=== PATIENT | female | born 1975 | race Caucasian/White ===

== ENCOUNTER → 2024-05-02 09:08 | Outpatient (REF) | payer OTHER, SELFPAY ==
[2024-05-02 09:36] LABS: % Basophils 0.9 % (0-2); % Eosinophils 2.3 % (0-6); % Immature Granulocytes 0.4 % (0-0.5); % Lymphocytes 38.9 % (20.5-51.1); % Monocytes 6.2 % (1.7-9.3); % Neutrophils 51.3 % (42.2-75.2); Absolute Basophils 0.1 10^3/uL (0-0.2); Absolute Eosinophils 0.1 10^3/uL (0-0.7); Absolute Lymphocytes 2.2 10^3/uL (1.2-3.4); Absolute Monocytes 0.4 10^3/uL (0.1-0.6); Absolute Neutrophils 2.9 10^3/uL (1.4-6.5); Hematocrit 41.9 % (37.0-47.0); Hemoglobin 13.8 g/dL (12.0-16.0); Mean Corp Hgb Conc. 32.9 g/dL (33.0-37.0); Mean Corpuscular Hgb 28.9 pg (27.0-31.0); Mean Corpuscular Volume 87.7 fL (81.0-99.0); Mean Platelet Volume 9.2 fL (7.4-10.4); Nucleated Red Blood Cells % 0 %; Platelet Count 297 10^3/uL (130-400); Red Blood Cell Count 4.78 10^6/uL (4.20-5.40); Red Cell Dist. Width 13.3 % (11.5-14.5); White Blood Cell Count 5.6 10^3/uL (4.8-10.8)
[2024-05-02 10:06] LABS: ALT (SGPT) 29 U/L (0-35); AST (SGOT) 25 U/L (14-36); Albumin 4.3 g/dl (3.5-5.0); Alkaline Phosphatase 74 U/L (38-126); Blood Urea Nitrogen 15 mg/dl (7-17); Calcium 9.4 mg/dl (8.4-10.2); Carbon Dioxide 28 mmol/L (22-30); Chloride 107 mmol/L (98-107); Glucose 91 mg/dl (70-99); HDL Cholesterol 69 mg/dl; LDL Cholesterol, Calculated 99 mg/dl; Potassium 4.6 mmol/L (3.5-5.1); Sodium 144 mmol/L (135-145); Total Bilirubin 0.4 mg/dl (0.2-1.3); Total Cholesterol 183 mg/dl (50-199); Total Protein 6.7 g/dl (6.3-8.2); Triglyceride 77 mg/dl (10-149); Very Low Density Lipoprotein 15 mg/dl (0-30); eGFR > 60.00
== END ==
LOC: REG 09:08
PROVIDERS: ATTENDING PHYSICIAN Family Medicine
DX: Z00.00 Encounter for general adult medical examination without abnormal findings (principal)
CPT/HCPCS: 36415; 80053; 80061; 85025

== ENCOUNTER → 2024-05-12 06:19 | Day surgery (SDC) | payer OTHER, SELFPAY | LOC: GI 06:19 | PROVIDERS: ATTENDING PHYSICIAN Surgery | DX: Z12.11 Encounter for screening for malignant neoplasm of colon (principal); D12.2 Benign neoplasm of ascending colon; D12.3 Benign neoplasm of transverse colon; D12.5 Benign neoplasm of sigmoid colon; K63.5 Polyp of colon; K62.1 Rectal polyp; Z86.0101 Personal history of adenomatous and serrated colon polyps | CPT/HCPCS: 45385; 45380; 88305 ==

== ENCOUNTER 2024-10-30 16:52 | Inpatient (IN) | payer OTHER, SELFPAY ==
[2024-10-30] VITALS (12 sets, daily range): BP systolic 86–115; BP diastolic 58–82; BMI 30.5
[2024-10-30 12:20] LABS: % Basophils 0.8 % (0-2); % Eosinophils 1.4 % (0-6); % Immature Granulocytes 0.2 % (0-0.5); % Lymphocytes 35.3 % (20.5-51.1); % Monocytes 7.4 % (1.7-9.3); % Neutrophils 54.9 % (42.2-75.2); Absolute Basophils 0.1 10^3/uL (0-0.2); Absolute Eosinophils 0.1 10^3/uL (0-0.7); Absolute Lymphocytes 2.2 10^3/uL (1.2-3.4); Absolute Monocytes 0.5 10^3/uL (0.1-0.6); Absolute Neutrophils 3.5 10^3/uL (1.4-6.5); Hematocrit 41.7 % (37.0-47.0); Hemoglobin 14.1 g/dL (12.0-16.0); Mean Corp Hgb Conc. 33.8 g/dL (33.0-37.0); Mean Corpuscular Hgb 29.3 pg (27.0-31.0); Mean Corpuscular Volume 86.7 fL (81.0-99.0); Mean Platelet Volume 9.3 fL (7.4-10.4); Nucleated Red Blood Cells % 0 %; Platelet Count 308 10^3/uL (130-400); Red Blood Cell Count 4.81 10^6/uL (4.20-5.40); Red Cell Dist. Width 13.2 % (11.5-14.5); White Blood Cell Count 6.3 10^3/uL (4.8-10.8)
[2024-10-30 12:33] LABS: ALT (SGPT) 27 U/L (0-35); AST (SGOT) 22 U/L (14-36); Albumin 4.4 g/dl (3.5-5.0); Alkaline Phosphatase 85 U/L (38-126); Blood Urea Nitrogen 14 mg/dl (7-17); Calcium 9.5 mg/dl (8.4-10.2); Carbon Dioxide 23 mmol/L (22-30); Chloride 112 mmol/L (98-107); Glucose 101 mg/dl (70-99); Lipase 77 U/L (23-300); Potassium 4.3 mmol/L (3.5-5.1); Sodium 141 mmol/L (135-145); Total Bilirubin 0.7 mg/dl (0.2-1.3); eGFR > 60.00
[2024-10-30 12:51] LABS: Urine Albumin 3+ (Neg - Trace); Urine Bilirubin Negative (Negative); Urine Character Clear (Clear); Urine Color Yellow; Urine Glucose Negative (Negative); Urine Ketone 1+ (Negative); Urine Leukocyte 2+ (Negative); Urine Nitrite Negative (Negative); Urine Occult Blood 4+ (Negative); Urine Urobilinogen 1+ (Neg - 1+)
[2024-10-30 13:51] LABS: Urine Mucus Many
[2024-10-30 13:52] LABS: Urine Squamous Cell 16-20 /LPF (Few)
[2024-10-30 13:53] LABS: Urine Red Blood Cell >100 /HPF (0-2); Urine White Cell >100 /HPF (0-5)
[2024-10-30 13:54] LABS: Urine Bacteria Moderate (Negative)
--- NOTE | 2024-10-30 15:05 | ED.GENMED ---
History of Present Illness
General
Chief Complaint: Abdominal Pain
Source: patient
Exam Limitations: none
Time Seen by Provider: 10/30/24 14:55
History of Present Illness
History of Present Illness:
49yoF with a history of kidney stones presenting for evaluation of flank pain. Pain began suddenly around 9:30 AM this morning. She reports a burning and sharp pain in her left flank and left lower quadrant. The pain was severe for about 2 hours
which prompted her to come to the ED. Symptoms resolved about 20 minutes after arrival. She continues to have a mild soreness in the area. She had 2 episodes of diarrhea earlier today. She noted some sediment in her urine as well. She denies
any dysuria, hematuria, fevers, vomiting. Patient is mostly worried because she has a colon resection scheduled for next week for recurrent polyps.
Past History
Past History
ED Past Medical History: Asthma and Other (Kidney stones); Negative HTN, Hypercholesterolemia or NIDDM
ED Past Surgical History: None
Social History
Tobacco: Former smoker
Alcohol: None
Drug: None
Personal:
Living: with family
Employment: Employed
Family History
Family History: Other (Noncontributory)
Phy Exam
General Physical Exam
General Presentation: well appearing and no apparent distress
General Skin: warm and dry
General Habitus: normal
General Mental: alert
ENT Exam
ENT Exam: normocephalic
Cardiovascular Exam
Cardiovascular Exam: regular rate/rhythm
Pulmonary Exam
Pulmonary Exam: lungs clear, no respiratory distress, no rales, no crackles, no rhonchi and no wheezing
Gastrointestinal Exam
Gastrointestinal Exam: non tender, soft, non distended and no cva tenderness
Neurological Exam
Neurological Exam: alert
Joanna Coma Scale
Eye Opening: Spontaneous
Verbal Response: Oriented
Motor Response: Obeys Commands
GCS Total Score: 15
Skin Exam
Skin Exam: normal color and warm/dry
Psychiatric Exam
Psychiatric Exam: normal mood/affect
Course
Orders/Labs/Results
Orders:
Orders
10/30/24 12:04
Complete Blood Count/With Diff Urgent
Comprehensive Metabolic Panel Urgent
Lipase Urgent
10/30/24 12:06
Urinalysis Reflex To Culture Urgent
Date Specimen was Collected: 10/30/24
Time Specimen was Collected: 11:56
Urine Microscopic Reflex Cult Urgent
Urine Culture Urgent
[facility] Source: U
Specimen Description:
Date Specimen was Collected: 10/30/24
Time Specimen was Collected: 11:56
10/30/24 15:05
CT Abd/pel Without Iv Or Oral Urgent
Comment:
Reason For Exam: L flank pain, LLQ pain
10/30/24 15:57
0.9% Sodium Chloride 1000 ml [Nss] 1,000 ml IV BOLUS
CefTRIAXone [Rocephin] 2,000 mg IV NOW STA
10/30/24 16:03
UROLOGY CONSULT Urgent
Consulting Provider: Abrahan Pedroza
Was physician already notified: Yes
10/30/24 16:21
Admit/Transfer Patient As Directed
Co-Sign Provider:
Level of Care: Inpatient admission
Assign to:: Medical/Surgical
Physician / Group: [place]
Diagnosis: renal calculus
Reason for Hospitalization: renal calculus
Expected length of stay greater than two midnights?: Yes
ELOS- Estimated Length of Stay in days: 3
I certify the patient meets the requirements for IP care: Yes
10/30/24 16:22
PRN Pain Medication Management As Directed
May give lesser potent ordered pain med per pt: Yes
preference::
Protocol:: Medication orders for pain may be administered in a
manner that supports deferring to patient preference
when the pt is:
- Requesting an ordered lesser potent pain medication.
Least to most potent pain medications are defined
as: acetaminophen < NSAID < tramadol < opioids
(morphine, oxycodone, hydromorphone).
- Requesting a lesser dose of the same medication IF
ORDERED.
- Requesting a less intrusive route of administration
if both routes are prescribed by the provider (PO <
IV).
10/30/24 16:23
Code Status As Directed
Resuscitation Status: Full Code
10/30/24 16:25
Diphenhydramine [Benadryl] 25 mg IV NOW STA
10/30/24 16:34
Norovirus by PCR Routine
[facility] Source: Feces/Stool
Specimen Description:
Stool Culture Routine
[facility] Source: Feces/Stool
Specimen Description:
Lactated Ringers [Lr] 1,000 ml IV BOLUS
Abnormal Lab Results
10/30/24 10/30/24
12:04 12:06
Chloride 112 H mmol/L
(98-107)
Glucose 101 H mg/dl
(70-99)
Urine Ketones 1+ A
(Negative)
Ur Occult Blood Reflex 4+ A
(Negative)
Leukocyte Esterase Rfl 2+ A
(Negative)
Urine RBC >100 A /HPF
(0-2)
Urine WBC (Reflex) >100 A /HPF
(0-5)
Urine Bacteria (Reflex) Moderate A
(Negative)
Urine Albumin (Reflex) 3+ A
(Neg - Trace)
10/30/24 12:04
10/30/24 12:04
Vital Signs
Initial and Last Documented VS:
Initial Vital Signs
Temp Pulse Resp BP Pulse Ox
97.8 F 88 16 115/81 98
10/30/24 11:53 10/30/24 11:53 10/30/24 11:53 10/30/24 11:53 10/30/24 11:53
Last Documented Vital Signs
Temp Pulse Resp BP Pulse Ox
97.8 F 81 16 105/71 97
10/30/24 11:53 10/30/24 17:53 10/30/24 17:53 10/30/24 17:53 10/30/24 17:53
MDM/Problems Addressed
Differential Diagnosis Includes:
49yoF here with L flank pain that began this morning. Now improved. Hx of kidney stones. VSS. She is well appearing in no distress. She is well appearing in no distress. No abdominal or CVA tenderness on exam. Differential diagnosis includes but is
not limited to: kidney stone, UTI, pyelonephritis, less likely diverticulitis
Initial ED plan: Workup initiated in triage. UA with >100 RBC, >100 WBCs, and moderate bacteria. White count and renal function normal. Will check CT abdomen without contrast.
*Critical Care Note
Total Time (30-74mins, 75-104mins- exclusive of procedures): Not Applicable
Update Note
Update Note:
CT shows a 9.7mm partially obstructing calculus in the L renal pelvis with mild hydronephrosis. She is afebrile and not meeting sepsis criteria. Case discussed with urology. Patient will go to the OR this evening for stent placement. IV Rocephin
ordered and patient admitted to the hospitalist service for further management.
ED Attending Note
-
Portions of this chart may have been created with voice recognition software.� Occasional wrong word or��sound alike� substitutions may have occurred due to the inherent limitations of voice recognition software.
Discharge Plan
Departure
Patient Disposition: Admit
Date of Disposition: 10/30/24
Time of Disposition: 16:04
Presentation/result/management discussed w/ accepting MD/DO: Hospitalist
Discharge Problem:
Calculus of left kidney, Urinary tract infection
Interventions
Interventions:
*Risk Screen - Suicide Last Done: 10/30/24 11:53
*General Assessment Last Done: 10/30/24 17:58
*Neglect/Abuse Screening Last Done: 10/30/24 11:53
*ED- Fall Risk Assessment Last Done: 10/30/24 17:58
*ED COVID-19 Vaccine History Last Done: 10/30/24 15:25
*Nursing Disposition Last Done: 10/30/24 18:00
BX-Ubqeiw-Dsqqdxnlnk Assessment Last Done: 10/30/24 15:25
Discharge Date and Time
Discharge Date/Time: 10/30/24 18:01
--- NOTE | 2024-10-30 16:06 | HPS.HSE ---
Addendum entered and electronically signed by Surendra Echevarria MD 10/30/24 17:17:
I saw and examined the patient.
The DOG LICENSE OFFICER SUPERVISOR or PA's note was reviewed and I agree with the note.
Comment:
49-year-old female with history of kidney stones presents for flank pain.��Pain began 930 this morning reportedly as sharp and burning pain in the left flank and left lower quadrant.��Symptoms resolved within 20 minutes of arrival to the
hospital.��Associated symptoms include 2 episodes of diarrhea.��Denies dysuria, hematuria, fever, chills, vomiting.��Blood pressure 110/69, pulse 88.��Respiratory rate 16.��Afebrile.��UA positive.��Imaging with mild left�hydronephrosis�secondary to
partially obstructing calculus in the left renal pelvis.��Multiple�nonobstructing�right�intrarenal�calculi.��Mild circumferential wall thickening to the descending colon suggestive of mild colitis or�underdistention�of the colon.��Of note patient
has scheduled colon resection scheduled for next week for recurrent polyps.
�
Plan�continue IV antibiotics.��Follow-up urine cultures.��Follow-up stool cultures for colitis if having diarrhea.��Continue antibiotic course.��IV fluids. Pain control
Original Note:
Family Physician
-
Family Physician: Willem Tolentino
Chief Complaint
-
left sided flank pain and abdominal pain
History of Present Illness
49yoF with a history of kidney stones presenting for evaluation of flank pain. Pain began suddenly around 9:30 AM this morning. She reports a burning and sharp pain in her left flank and left lower quadrant. Patient denied any dysuria, hematuria
or urinary frequency. Patient denies any fever, chills, chest pain, short of breath. Patient denies any nausea, vomiting. had one episode of diarrhea.
CT with 9.7 partially obstructing calculus in the left renal pelvis. Admitting for further management
Medical History
Past Medical History
Past Medical History: Reports Other
Additional Past Medical History:
Kidney stones
Past Surgical History: Reports Other
Additional Past Surgical History:
Hysterectomy
Social History
Tobacco: Former Smoker
Alcohol: None
Drug: None
Family History
Family History: Not pertinent
Allergies / Home Medications
Allergies reflects when Allergies were last updated in [facility].
Home Medications with original date entered in [facility]
Allergy/Medication List:
Allergies
Allergy/AdvReac Type Severity Reaction Status Date / Time
tamsulosin (From Flomax) Allergy Hives Verified 10/30/24 11:52
Review of Systems
-
Constitutional: Reports No Symptoms
EENT: Reports No Symptoms
Respiratory: Reports No Symptoms
Cardiac: Reports No Symptoms
Abdomen/GI: Reports No Symptoms
: Reports Flank Pain
Musculoskeletal: Reports No Symptoms
Skin: Reports No Symptoms
Neurological: Reports No Symptoms
Endocrine: Reports No Symptoms
Hematologic/Lymphatic: Reports No Symptoms
Psych: Reports No Symptoms
Physical Exam
Vital Signs
Vital Signs
Temp Pulse Resp BP Pulse Ox
97.8 F 88 16 104/69 98
10/30/24 11:53 10/30/24 11:53 10/30/24 11:53 10/30/24 15:55 10/30/24 11:53
Physical Exam
General: Well Developed, Well Nourished and No Apparent Distress
HEENT: NormoCephalic, Moist mucous membranes and Atraumatic
Respiratory: Clear
Cardiac: S1/S2 and Regular Rhythm; No Murmur or Rub
GI: Soft, Non Tender, Non Distended and Normal Bowel Sounds; No Organomegaly
Rectal: Deferred by Provider
Musculoskeletal: No Clubbing, No Cyanosis and No Edema
Skin: No Rash
Neuro: AO x 3 and Nonfocal/grossly intact
Psych: Calm
Laboratory Results
-
10/30/24 12:04
10/30/24 12:04
Laboratory Results
Total Bilirubin 0.7 mg/dl (0.2-1.3) 10/30/24 12:04
AST 22 U/L (14-36) 10/30/24 12:04
ALT 27 U/L (0-35) 10/30/24 12:04
Alkaline Phosphatase 85 U/L (38-126) 10/30/24 12:04
Lipase 77 U/L (23-300) 10/30/24 12:04
Data Reviewed
-
CT Scan: Report Reviewed by me
Lab Data: Labs Reviewed by me
Impression/Plan
-
# Left flank pain secondary to obstructing 9.7 mm calculus left renal pelvis
# Urinary tract infection
- Ceftriaxone continued
- Plan for OR tonight
- Keep patient n.p.o.
-Urology consulted
- CT with impression ofMILD LEFT HYDRONEPHROSIS secondary to a 9.7 mm PARTIALLY OBSTRUCTING CALCULUS in the LEFT RENAL PELVIS.
2. Multiple nonobstructing right intrarenal calculi.
3. Mild circumferential wall thickening throughout the descending colon suggesting a mild colitis. Under distention of the colonic lumen is an alternative diagnostic possibility.
4. Previous hysterectomy.
#colitis
-obtain stool culture and noro virus if continues to have diarrhea.
# DVT prophylaxis
- SCDs
# CODE STATUS
- Full code
[2024-10-30] MEDS: NSS 1000 IV (16:20)
[2024-10-30] MEDS: ROCEPHIN 2000 MG IV (16:22)
[2024-10-30] MEDS: BENADRYL 25 MG IV (16:29)
[2024-10-30] MEDS: LR 1000 IV ×2 (17:28→21:00)
--- NOTE | 2024-10-30 17:33 | W.PN.URO.CBU ---
Today's Communication / Plan
-
for op room npo
Assessment / Plan
-
impassable left upj stone
Diagnosis
-
Date of Service: October 30, 2024
-
Patient Diagnosis:left 9x5x5 partially obstructing renal pelvis stone
Post Op Day:
Subjective
-
colic no fever chills
Objective
-
Vital Signs
Temp Pulse Resp BP Pulse Ox
97.8 F 68 15 92/62 96
10/30/24 11:53 10/30/24 17:15 10/30/24 17:15 10/30/24 17:00 10/30/24 17:15
Laboratory Results
10/30/24 12:04
10/30/24 12:04
Review of Systems
-
: Flank Pain
Physical Exam
-
General - well developed, well nourished, no acute distress non toxic
Chest - clear bilaterally
Abdomen - soft, non-tender, positive bowel sounds, no CVAT, no incisional pain or distention
Genitalia - normal
Rectal - normal
Skin - warm & dry with no rash
Neuro - AOx3, no motor deficits
Extremities - no clubbing, no cyanosis, no edema
Incision - clean, dry
Dressing - clean, dry, intact
Care Review
Data Reviewed
Discussed with: Hospitalist and Nursing
CT Scan: Image Pers Reviewed
--- NOTE | 2024-10-30 17:57 | PTCARENOTE ---
report given to or nurse.
--- NOTE | 2024-10-30 19:57 | W.SUR.POST ---
Surgical Immediate Post Op
Note
Pre Op Diagnosis: left upj stone
Post Op Diagnosis: same
Procedure Performed: left uretroscopy laser stone andbasket extraction jj stent
Primary Surgeon:dyllan
Secondary Surgeons:
Anesthesia: genjerial marcos portillo
1cc
Fluids:
nss
Drains/Shunts:
Specimens/Cultures: stone
Doppler/Duplex/Angio (Y/N):
Complications:
0
Operative Findings: 9mm x5 x 5mm left upj stone lasered extrcets jj rangel ansd stented
[2024-10-30] MEDS: DILAUDID 0.25 MG IV (20:16)
[2024-10-30] MEDS: Pyridium 200 MG PO (20:16)
--- NOTE | 2024-10-31 00:22 | PTCARENOTE ---
20:50 pt rec;vd from PACU aa0x3, denies pain, pt did ambulate to restroom without concern voided mod amount of orange and blood tinged urine. Hat in place for norovirus sample, pt oriented to unit.
[2024-10-31 03:40] VITALS: BP 103/61
[2024-10-31 07:35] VITALS: BP 94/58
[2024-10-31] MEDS: NORMOSOL-R/PLASMALYTE-A 1000 IV (08:50)
[2024-10-31] MEDS: LR 1000 IV (09:00)
--- NOTE | 2024-10-31 09:37 | CM ---
Reviewed the chart notes and spoke with the patient at the bedside. The patient resides with her spouse, son, and mother in a two story home with no steps to enter. The patient reports no DME/VN/SNF in the past. The patient confirmed her pharmacy
of choice is [facility]. CM continues to be available to patient/family and is monitoring medical plan for needs at discharge.
Plan: Discharge to home when medically stable. No needs anticipated at this time.
--- NOTE | 2024-10-31 09:59 | W.PN.URO.CBU ---
Today's Communication / Plan
-
home
Assessment / Plan
-
stable for d/c s/p laser impassable left upj stone
Diagnosis
-
Date of Service: October 31, 2024
-
Patient Diagnosis:
Post Op Day:
Patient Diagnosis:left 9x5x5 partially obstructing renal pelvis stone
Post Op Day:
Subjective
-
much less pain tolerating stent well
Objective
-
Vital Signs
Temp Pulse Resp BP Pulse Ox
98.2 F 69 18 94/58 95
10/31/24 07:35 10/31/24 07:35 10/31/24 07:35 10/31/24 07:35 10/31/24 07:35
Intake and Output
10/30/24 10/31/24 11/01/24
06:59 06:59 06:59
Intake Total 700 / 700
Balance 700 / 700
Intake:
IV fluids (Total) 700 / 700
Other:
Number of approximated MODERATE 2
amounts of urine
Laboratory Results
10/30/24 12:04
10/30/24 12:04
Review of Systems
-
: Urgency and Dark Urine
Physical Exam
-
General - well developed, well nourished, no acute distress
Chest - clear bilaterally
Abdomen - soft, non-tender, positive bowel sounds, no CVAT, no incisional pain or distention
Genitalia - normal
Rectal - normal
Skin - warm & dry with no rash
Neuro - AOx3, no motor deficits
Extremities - no clubbing, no cyanosis, no edema
Incision - clean, dry
Dressing - clean, dry, intact
Care Review
Data Reviewed
Discussed with: Hospitalist and Nursing
CT Scan: Image Pers Reviewed
--- NOTE | 2024-10-31 10:05 | W.PN.HOSP.TC ---
Addendum entered and electronically signed by Surendra Echevarria MD 10/31/24 12:25:
[id number]
Original Note:
Today's Communication/Plan
-
abx course
follow up cultures with urology early this week
Stent removal as per urology this week
f/u labs within 1 week
f/u PCP within 1 week
Assessment / Plan
Assessment / Plan
Physical Exam
General: Well Developed, Well Nourished and No Apparent Distress
HEENT: NormoCephalic, Moist mucous membranes and Atraumatic
Respiratory: Clear
Cardiac: S1/S2 and Regular Rhythm; No Murmur or Rub
GI: Soft, Non Tender, Non Distended and Normal Bowel Sounds; No Organomegaly
Rectal: Deferred by Provider
Musculoskeletal: No Clubbing, No Cyanosis and No Edema
Skin: No Rash
Neuro: AO x 3 and Nonfocal/grossly intact
Psych: Calm
# Left flank pain secondary to obstructing 9.7 mm calculus left renal pelvis
#Mild hydronephrosis, left
# ?Complicated Urinary tract infection
-s/p laser impassable left upj stone
- Ceftriaxone - transition to augmentin for 9 day additional course to complete 10 day course
- F/u Urology - Going to see Dr. Pedroza early next week (Saturday or Saturday) for stent removal- he will follow up with cultures
#Underdistention of Colon
-No diarrhae as per patient, had two soft bms yesterday which resolved on its own
# DVT prophylaxis
- SCDs
# CODE STATUS
- Full code
More than 30 minutes spent in discharge including
Final examination of the patient
Summarizing hospital stay
Instructions for continuing care to all relevant caregivers
Preparation of discharge records, prescriptions, and referral forms
Total time spent (in minutes): 36
Anticipated Discharge: Today
Subjective/Interval History
-
Date of Service: October 31, 2024
feels much better
Objective Data
-
Vital Signs:
Vital Signs
Temp Pulse Resp BP Pulse Ox
98.2 F 69 18 94/58 95
10/31/24 07:35 10/31/24 07:35 10/31/24 07:35 10/31/24 07:35 10/31/24 07:35
I&O
10/30/24 10/31/24 11/01/24
06:59 06:59 06:59
Intake Total 700 / 700
Balance 700 / 700
Review of Systems
-
History Source: Patient
All other systems: Not reviewed unless documented
Data Reviewed
-
Diagnostic Radiology: Report Reviewed by me
CT Scan: Report Reviewed by me
Labs: Labs Reviewed by me
--- NOTE | 2024-10-31 10:15 | W.DS.TRANS ---
DC Summary - Hand Patcher
-
Discharge Instructions:
Discharge Diagnosis/Procedures left renal stone with obstruction
Diet Low Cholesterol,Low Fat
Activity As tolerated
Blood Work cbc and bmp in 3-5 days
Instructions:
Stand-Alone Forms:
Changes to Home Medications: Yes
Discharge Medications:
DC Medications w/original date entered in [facility]
amoxicillin 875 mg-potassium clavulanate 125 mg tablet 1 tab PO Q12H 9 days #18 tabs 10/31/24
Home Medication Changes
amoxicillin 875 mg-potassium clavulanate 125 mg tablet 1 tab PO Q12H 9 days #18 tabs 10/31/24
Pending Results: No
[2024-10-31 11:27] VITALS: BP 111/81
== END 2024-10-31 11:32 | disposition home or self-care (01) | DRG 661 ==
LOC: 2 SOUTH 16:52
PROVIDERS: Student in an Organized Health Care Education/Training Program; ADMITTING PHYSICIAN Internal Medicine; CONSULT PHYSICIAN Specialist; EMERGENCY PHYSICIAN Emergency Medicine; FAMILY PHYSICIAN Family Medicine
PROC: 0TC78ZZ Extirpation of Matter from Left Ureter, Via Natural or Artificial Opening Endoscopic (ICD-10-PCS; 2024-10-30)
PROC: 0T778DZ Dilation of Left Ureter with Intraluminal Device, Via Natural or Artificial Opening Endoscopic (ICD-10-PCS; 2024-10-30)
DX: N13.6 Pyonephrosis (principal); R19.7 Diarrhea, unspecified; K63.5 Polyp of colon; J45.909 Unspecified asthma, uncomplicated; Z87.442 Personal history of urinary calculi; Z87.891 Personal history of nicotine dependence; Z88.8 Allergy status to other drugs, medicaments and biological substances; Z90.710 Acquired absence of both cervix and uterus
CPT/HCPCS: 74018; 74176; 76000; 80053; 81003; 81015; 82365; 83690; 85025; 87086; 96361; 96374; 96375; 99284; C1894; C2617

== ENCOUNTER 2024-11-04 10:59 | Inpatient (IN) | payer OTHER, SELFPAY ==
[2024-10-28 11:54] LABS: Hematocrit 41.8 % (37.0-47.0); Hemoglobin 13.9 g/dL (12.0-16.0); Mean Corp Hgb Conc. 33.3 g/dL (33.0-37.0); Mean Corpuscular Hgb 29.3 pg (27.0-31.0); Platelet Count 316 10^3/uL (130-400); Red Blood Cell Count 4.75 10^6/uL (4.20-5.40); Red Cell Dist. Width 13.2 % (11.5-14.5); White Blood Cell Count 5.4 10^3/uL (4.8-10.8)
[2024-10-28 12:09] LABS: INR 0.93
[2024-10-28 12:10] LABS: APTT 26.7 Sec (23.4-35.0)
[2024-10-28 12:47] LABS: Glycohemoglobin (HgbA1c) 5.4 % (4.0-5.6)
[2024-10-28 13:49] LABS: ALT (SGPT) 30 U/L (0-35); AST (SGOT) 28 U/L (14-36); Albumin 4.5 g/dl (3.5-5.0); Alkaline Phosphatase 83 U/L (38-126); Blood Urea Nitrogen 18 mg/dl (7-17); Calcium 9.3 mg/dl (8.4-10.2); Carbon Dioxide 24 mmol/L (22-30); Chloride 110 mmol/L (98-107); Glucose 71 mg/dl (70-99); Potassium 4.7 mmol/L (3.5-5.1); Sodium 143 mmol/L (135-145); Total Bilirubin 0.7 mg/dl (0.2-1.3); eGFR > 60.00
[2024-10-28 13:54] VITALS: BMI 29.3
[2024-11-04] VITALS (11 sets, daily range): BP systolic 98–118; BP diastolic 61–77; BMI 29.3
[2024-11-04] MEDS: ENTEREG 12 MG PO (12:07)
[2024-11-04] MEDS: TYLENOL 1000 MG PO (12:07)
[2024-11-04] MEDS: HEPARIN 5000 UNITS SC (12:08)
[2024-11-04] MEDS: NORMOSOL-R/PLASMALYTE-A 1000 IV ×2 (12:10→17:32)
--- NOTE | 2024-11-04 16:35 | W.OR.COLCA ---
Colon Cancer Post Op Note
Immediate Post Op
Primary Surgeon: Juni Wing MD
Breaker Unit Assembler: SHAHID Rose
Pre-op Diagnosis: Neoplastic polyp of the ascending colon (possible cancer)
Post-op Diagnosis: Same
Procedure Performed: Robotic right colectomy with isoperistaltic intracorporeal anastomosis
Anesthesia Type: GET
Specimen / Cultures: Right colon
Estimated Blood Loss: 20cc
Complications: None
Operative Findings: No evidence of metastatic disease
Ink and lesion in the ascending colon
Patient's family updated in the waiting room.
Colon Resection
Colon Resection
Operation performed with curative intent: Yes
Tumor Location: Ascending Colon
Right Hemicolectomy: Ileocolic and Right Colic
[2024-11-04] MEDS: TORADOL 15 MG IV ×2 (17:07→22:32)
--- NOTE | 2024-11-04 18:25 | PTCARENOTE ---
Patient arrived to floor from pacu wih ivf, clear liquid diet, family at bedside. Pt denies n/v/pain at this time. RN helped her order clear liquid dinner. Vital signs are wnl
[2024-11-04] MEDS: TYLENOL 650 MG PO (19:16)
[2024-11-04] MEDS: TYLENOL PO (23:25)
[2024-11-05] MEDS: TYLENOL PO (03:04)
[2024-11-05] MEDS: TYLENOL 650 MG PO ×6 (03:25→23:12)
[2024-11-05 03:39] VITALS: BP 107/70
[2024-11-05] MEDS: TORADOL 15 MG IV ×4 (04:16→23:15)
[2024-11-05] MEDS: NORMOSOL-R/PLASMALYTE-A 1000 IV (04:20)
[2024-11-05 05:51] VITALS: BMI 28.4
[2024-11-05 06:39] LABS: % Basophils 0.2 % (0-2); % Immature Granulocytes 0.6 % (0-0.5); % Lymphocytes 13.1 % (20.5-51.1); % Monocytes 6.3 % (1.7-9.3); % Neutrophils 79.8 % (42.2-75.2); Absolute Immature Granulocytes 0.1 10^3/uL (0-0.05); Absolute Lymphocytes 1.4 10^3/uL (1.2-3.4); Absolute Monocytes 0.7 10^3/uL (0.1-0.6); Absolute Neutrophils 8.3 10^3/uL (1.4-6.5); Hematocrit 36.8 % (37.0-47.0); Hemoglobin 12.6 g/dL (12.0-16.0); Mean Corp Hgb Conc. 34.2 g/dL (33.0-37.0); Mean Corpuscular Hgb 29.5 pg (27.0-31.0); Mean Corpuscular Volume 86.2 fL (81.0-99.0); Mean Platelet Volume 9.8 fL (7.4-10.4); Nucleated Red Blood Cells % 0 %; Platelet Count 293 10^3/uL (130-400); Red Blood Cell Count 4.27 10^6/uL (4.20-5.40); Red Cell Dist. Width 13.2 % (11.5-14.5); White Blood Cell Count 10.3 10^3/uL (4.8-10.8)
[2024-11-05 07:02] LABS: Blood Urea Nitrogen 7 mg/dl (7-17); Calcium 8.4 mg/dl (8.4-10.2); Carbon Dioxide 19 mmol/L (22-30); Chloride 110 mmol/L (98-107); Estimated Creatinine Clearance 106 ml/min; Glucose 88 mg/dl (70-99); Potassium 4.4 mmol/L (3.5-5.1); Sodium 137 mmol/L (135-145); eGFR > 60.00
[2024-11-05 07:15] VITALS: BP 103/73
[2024-11-05 07:35] VITALS: BP 107/68
--- NOTE | 2024-11-05 08:52 | W.PN.CRS1 ---
Today's Communication / Plan
-
fulls
lovenox
d/c butler
await path
Assessment/Plan
-
POD#1 Robotic right colectomy with isoperistaltic intracorporeal anastomosis
WBC 10.3, Hgb 12.6
vitals normal, afebrile
-Tolerating clears. Advance to fulls. D/C IVFs when tolerating po.
-OOB as tolerated
-D/C butler
-Start lovenox tonight for DVT prophylaxis. TEDS/SCDs in place.
-Pain control: Tylenol/Toradol standing, Dilaudid and Oxycodone PRN
-OR pathology pending
-Incentive spirometry q1h while awake
-Will need 28 days of Eliquis on d/c due to increased risk of dvt
Subjective Data
Procedure
11/04/24- Robotic right colectomy with isoperistaltic intracorporeal anastomosis
Subjective Data
Date of Service: November 05, 2024
Patient states her pain is controlled. She denies nausea or vomiting. She has not had any gas or bowel movements yet. She tolerated clears.
Objective Data
-
Vital Signs
Temp Pulse Resp BP Pulse Ox
98.1 F 72 16 107/68 95
11/05/24 07:35 11/05/24 07:35 11/05/24 07:35 11/05/24 07:35 11/05/24 07:35
Intake & Output
11/04/24 11/05/24 11/06/24
06:59 06:59 06:59
Intake Total 100 / 100
Output Total 1450 / 1450
Balance -1350 / -1350
Intake:
IV fluids (Total) 100 / 100
Normosal 100 / 100
Output:
Urine, Butler 1450 / 1450
Lab Results
11/05/24 05:33
11/05/24 05:33
Physical Exam
-
General: No Acute Distress and AOx3
Abdomen: Soft, Non Distended and Tender (around lower incision)
Skin: Warm and Dry
Incision: Clear, Dry, Intact
[2024-11-05] MEDS: ENTEREG 12 MG PO (10:19)
--- NOTE | 2024-11-05 12:08 | CM ---
CM following re: discharge planning.
Reviewed pt' chart, met with pt.
Pt is a 49 year old female, admitted with primary dx of POD 1 s/p robotic RHC.
Pt reports she lives with and 3 children in a 2SH, no steps to enter. 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
PCP: Willem Tolentino
Pharmacy: [facility].
D/C plan: home with anticipated no needs. to transport at discharge.
CM will follow with discharge plan updates as hospitalization progresses
[2024-11-05 15:45] VITALS: BP 114/73
[2024-11-05] MEDS: NORMOSOL-R/PLASMALYTE-A IV (18:16)
[2024-11-05] MEDS: LOVENOX 40 MG SC (18:17)
[2024-11-05] MEDS: ENTEREG PO (20:34)
[2024-11-05] MEDS: TORADOL IV (23:11)
[2024-11-05 23:32] VITALS: BP 102/66
[2024-11-06] MEDS: TYLENOL PO (03:00)
[2024-11-06] MEDS: TORADOL 15 MG IV (05:52)
[2024-11-06 05:58] VITALS: BMI 28.1
[2024-11-06 07:57] VITALS: BP 108/69
[2024-11-06 08:09] LABS: % Basophils 0.8 % (0-2); % Eosinophils 4.4 % (0-6); % Immature Granulocytes 0.8 % (0-0.5); % Lymphocytes 22.7 % (20.5-51.1); % Neutrophils 63.3 % (42.2-75.2); Absolute Basophils 0.1 10^3/uL (0-0.2); Absolute Eosinophils 0.4 10^3/uL (0-0.7); Absolute Immature Granulocytes 0.1 10^3/uL (0-0.05); Absolute Lymphocytes 1.8 10^3/uL (1.2-3.4); Absolute Monocytes 0.6 10^3/uL (0.1-0.6); Absolute Neutrophils 5.1 10^3/uL (1.4-6.5); Hematocrit 37.6 % (37.0-47.0); Hemoglobin 12.8 g/dL (12.0-16.0); Mean Corpuscular Hgb 29.4 pg (27.0-31.0); Mean Corpuscular Volume 86.4 fL (81.0-99.0); Mean Platelet Volume 9.7 fL (7.4-10.4); Nucleated Red Blood Cells % 0 %; Platelet Count 276 10^3/uL (130-400); Red Blood Cell Count 4.35 10^6/uL (4.20-5.40); Red Cell Dist. Width 13.5 % (11.5-14.5)
[2024-11-06 09:07] LABS: Blood Urea Nitrogen 8 mg/dl (7-17); Calcium 8.9 mg/dl (8.4-10.2); Carbon Dioxide 22 mmol/L (22-30); Chloride 110 mmol/L (98-107); Estimated Creatinine Clearance 105 ml/min; Glucose 82 mg/dl (70-99); Potassium 4.1 mmol/L (3.5-5.1); Sodium 138 mmol/L (135-145); eGFR > 60.00
[2024-11-06] MEDS: TYLENOL 650 MG PO ×2 (09:10→12:37)
[2024-11-06] MEDS: ENTEREG PO ×2 (09:11→09:13)
--- NOTE | 2024-11-06 09:27 | W.PN.CRS1 ---
Today's Communication / Plan
-
low residue diet
possible d/c later today
Assessment/Plan
-
POD#2 Robotic right colectomy with isoperistaltic intracorporeal anastomosis
WBC 8.0, Hgb 12.8
vitals normal, afebrile
-Advance to low residue
-OOB as tolerated
-Voiding post butler removal
-Lovenox for DVT prophylaxis. TEDS/SCDs in place.
-Pain control: Tylenol/Toradol standing, Dilaudid and Oxycodone PRN
-OR pathology pending
-Incentive spirometry q1h while awake
-Will need 28 days of Eliquis on d/c due to increased risk of dvt - patient is considering it
-Possible d/c later today if tolerates a low residue diet
Subjective Data
Procedure
11/04/24- Robotic right colectomy with isoperistaltic intracorporeal anastomosis
Subjective Data
Date of Service: November 06, 2024
Patient states she feels well. She denies nausea or vomiting. She has no complaints.
Objective Data
-
Vital Signs
Temp Pulse Resp BP Pulse Ox
98.4 F 77 16 108/69 95
11/06/24 07:57 11/06/24 07:57 11/06/24 07:57 11/06/24 07:57 11/06/24 07:57
Intake & Output
11/05/24 11/06/24 11/07/24
06:59 06:59 06:59
Intake Total 100 / 100 480 / 480 500 / 500
Output Total 1450 / 1450 450 / 450
Balance -1350 / -1350 30 / 30 500 / 500
Intake:
Oral fluids 480 / 480 500 / 500
IV fluids (Total) 100 / 100
Normosal 100 / 100
Output:
Urine, Butler 1450 / 1450 450 / 450
Other:
How many times incontinent 3
MODERATE amount urine
Lab Results
11/06/24 07:21
11/06/24 07:21
Physical Exam
-
General: No Acute Distress and AOx3
Abdomen: Soft, Non Distended and Tender (mild around incisions)
Skin: Warm and Dry
Incision: Clear, Dry, Intact
--- NOTE | 2024-11-06 10:58 | CM ---
Patient seen at bedside in [address] [place] [address]. Patient for discharge home today no needs anticipated and patient confirmed she has a ride home. CM will continue to follow for discharge planning needs.
Plan; home with no needs
[2024-11-06 12:36] VITALS: BP 112/78
[2024-11-06] MEDS: TORADOL IV (12:37)
== END 2024-11-06 15:01 | disposition home or self-care (01) | DRG 331 ==
LOC: 2 SOUTH 10:59
PROVIDERS: Physician Assistant; ADMITTING PHYSICIAN Surgery; FAMILY PHYSICIAN Family Medicine
PROC: 0DTF4ZZ Resection of Right Large Intestine, Percutaneous Endoscopic Approach (ICD-10-PCS; 2024-11-04)
PROC: 8E0W4CZ Robotic Assisted Procedure of Trunk Region, Percutaneous Endoscopic Approach (ICD-10-PCS; 2024-11-04)
DX: D12.2 Benign neoplasm of ascending colon (principal); D64.9 Anemia, unspecified; J45.909 Unspecified asthma, uncomplicated; Z87.442 Personal history of urinary calculi; Z90.710 Acquired absence of both cervix and uterus; Z83.719 Family history of colon polyps, unspecified; Z82.49 Family history of ischemic heart disease and other diseases of the circulatory system; Z84.1 Family history of disorders of kidney and ureter; Z83.2 Family history of diseases of the blood and blood-forming organs and certain disorders involving the immune mechanism; Z80.8 Family history of malignant neoplasm of other organs or systems; Z86.0102 Personal history of hyperplastic colon polyps; Z86.0101 Personal history of adenomatous and serrated colon polyps
CPT/HCPCS: 88307; 36415; 80048; 80053; 83036; 85025; 85027; 85610; 85730; 86850; 86900; 86901; J1335

== ENCOUNTER → 2024-12-10 15:35 | Outpatient (REF) | payer OTHER, SELFPAY | LOC: WDC 15:35 | PROVIDERS: ATTENDING PHYSICIAN Family Medicine | DX: Z12.31 Encounter for screening mammogram for malignant neoplasm of breast (principal) | CPT/HCPCS: 77063; 77067 ==